=== PATIENT | female | born 1975 | race Caucasian/White ===

== ENCOUNTER → 2021-11-06 | Outpatient (CLI) | payer OTHER ==
[~2021-11-06] MED LIST: ATENOLOL100 MG PO; BUSPIRONE HCL15 MG PO; CELEXA40 MG PO; COZAAR100 MG PO; MOBIC15 MG PO; REMERON 15 MG T15 MG PO; TRAZODONE HCL150 MG PO
[2021-11-06 11:27] LABS: HEMOGLOBIN 12.4 gm/dl (12.3-15.3); RED BLOOD COUNT 4.77 M/UL (4.00-5.10); WHITE BLOOD COUNT 5.8 K/UL (4.5-11.0)
[2021-11-06 11:46] LABS: BUN/CREATININE RATIO 11 (0-10)
== END ==
LOC: OPSV2 09:30
PROVIDERS: Orthopaedic Surgery
DX: Z01.812 Encounter for preprocedural laboratory examination (principal); M65.311 Trigger thumb, right thumb
CPT/HCPCS: 36415; 80048; 85025